=== PATIENT | female | born 1950 | race Caucasian/White ===

== ENCOUNTER 2023-02-11 17:38 | Inpatient (IN) | payer MEDICARE ==
[~2023-02-11] VITALS: Ht 165.1 cm; Wt 106.6 kg
[2023-02-11 18:09] LABS: BASOPHILS # (AUTO) 0.1 (0.0-0.1); BASOPHILS % 0.6 % (0.0-1.0); EOSINOPHILS % 0.3 % (0.0-6.0); HEMOGLOBIN 15.6 g/dL (12.0-16.0); LYMPHOCYTES # (AUTO) 0.9 (1.0-3.2); MEAN CORPUSCULAR HEMOGLOBIN 30.6 pg (28-32); MEAN CORPUSCULAR HGB CONC 33.9 g/dL (31-35); MEAN CORPUSCULAR VOLUME 90.2 fL (81-99); MONOCYTES # (AUTO) 1.1 (0.2-0.8); NEUTROPHILS # (AUTO) 8.1 (2.1-6.9); NEUTROPHILS % 78.9 % (38.7-80.0); PLATELET COUNT 343 x10e3/uL (140-360); RED CELL DISTRIBUTION WIDTH 13.6 % (11.7-14.4); WHITE BLOOD COUNT 10.22 x10e3/uL (4.8-10.8)
[2023-02-11] MEDS ORDERED: ONDANSETRON HCL INJ 2MG/ML 2ML 2 MG/ML VIAL IV STA (18:09)
[2023-02-11] MEDS ORDERED: SODIUM CHLORIDE 0.9% 1000ML 1,000 ML IV ONE (18:15)
[2023-02-11 18:19] LABS: ALBUMIN 4.2 g/dL (3.5-5.0); ALBUMIN/GLOBULIN RATIO 1.2 (0.8-2.0); ANION GAP 23.9 mmol/L (8-16); CALCIUM 10.4 mg/dL (8.4-10.2); CREATININE, SERUM 1.05 mg/dL (0.57-1.11); POTASSIUM 3.9 mmol/L (3.5-5.1)
[2023-02-11] MEDS ORDERED: IOPAMIDOL 370 MG/ML 100 ML INFUS..BTL INJ ONE (18:32)
[2023-02-11 18:42] LABS: CLARITY,URINE CLOUDY (CLEAR); COLOR,URINE YELLOW (YELLOW); KETONES,URINE 2+ (NEGATIVE); LEUKOCYTE ESTERASE ,URINE TRACE (NEGATIVE); NITRITE,URINE NEGATIVE (NEGATIVE); PROTEIN,URINE DIPSTICK TRACE (NEGATIVE); URINE UROBILINOGEN 0.2 mg/dL (0.2 - 1)
[2023-02-11 19:05] LABS: BACTERIA,URINE MANY /HPF; EPITHELIAL CELLS,URINE FEW /LPF; MUCUS,URINE FEW (RARE); RENAL EPITHELIAL CELLS,URINE MANY; TRANSITIONAL EPI CELLS,URINE MODERATE; WBC,URINE (MAN) >50 /HPF (0-5)
[2023-02-11] MEDS ORDERED: DEXTROSE 50% SYRINGE 50 ML IV PRN (19:45)
[2023-02-11] MEDS ORDERED: BENZOCAINE/TETRACAINE/BUTAMBEN AERO SPRAY 56 GM CAN TOP ONE (19:45)
[2023-02-11 20:00] VITALS: BP 102/64; PULSE 87; RESP 18; TEMP 98.7; O2SAT 97
[2023-02-11] MEDS: SODIUM CHLORIDE 0.9% 1000ML 1,000 ML IV SCH (20:58)
[2023-02-11] MEDS: INSULIN REGULAR, HUMAN 100 UNIT/1 ML SQ SCH (21:00)
[2023-02-11 21:15] VITALS: BP 102/64; PULSE 87; RESP 18; TEMP 98.7; O2SAT 97
[2023-02-11] MEDS ORDERED: METOPROLOL TART50 MG PO (21:16)
[2023-02-11] MEDS ORDERED: AMLODIPINE BESYL5 MG PO (22:26)
[2023-02-11] MEDS ORDERED: GABAPENTIN100 MG PO (22:26)
[2023-02-11] MEDS ORDERED: ROSUVASTATIN CA20 MG PO (22:26)
[2023-02-11] MEDS ORDERED: CLOPIDOGREL75 MG PO (22:26)
[2023-02-11] MEDS ORDERED: GEMTESA75 MG PO (22:26)
[2023-02-11] MEDS ORDERED: HYDROCODON-ACE1 EAC9 PO (22:26)
[2023-02-11] MEDS ORDERED: GLIPIZIDE10 MG PO (22:26)
[2023-02-11] MEDS ORDERED: MECLIZINE HCL25 MG PO (22:26)
[2023-02-11] MEDS ORDERED: METFORMIN HCL1000 MG PO (22:26)
[2023-02-11] MEDS ORDERED: LOSARTAN POTASS25 MG PO (22:26)
[2023-02-11] MEDS ORDERED: ELIQUIS5 MG PO (22:26)
[2023-02-11] MEDS ORDERED: OMEPRAZOLE40 MG PO (22:26)
[2023-02-11] MEDS ORDERED: METHOCARBAMOL500 MG PO (22:26)
[2023-02-11] MEDS ORDERED: JARDIANCE25 MG PO (22:26)
[2023-02-11] MEDS ORDERED: LOPRESSOR25 MG PO (22:27)
[2023-02-11] MEDS: ONDANSETRON HCL INJ 2MG/ML 2ML 2 MG/ML VIAL IV PRN (23:46)
[2023-02-11] MEDS: Morphine 4mg INJECTION 4 MG/ML INJ IV PRN (23:46)
[2023-02-12] VITALS (8 sets, daily range): BP systolic 112–137; BP diastolic 62–69; PULSE 90–98; RESP 16–20; TEMP 97.9–99; O2SAT 97–100
[2023-02-12] MEDS: SODIUM CHLORIDE 0.9% 1000ML 1,000 ML IV SCH ×3 (04:12→20:07)
[2023-02-12] MEDS ORDERED: HYDRALAZINE HCL 20 MG/ML VIAL IV PRN (04:15)
[2023-02-12] MEDS: ONDANSETRON HCL INJ 2MG/ML 2ML 2 MG/ML VIAL IV PRN ×2 (05:35→21:33)
[2023-02-12] MEDS: Morphine 4mg INJECTION 4 MG/ML INJ IV PRN ×2 (05:36→22:27)
[2023-02-12 05:53] LABS: BASOPHILS % 0.5 % (0.0-1.0); HEMATOCRIT 44.9 % (34.2-44.1); HEMOGLOBIN 14.7 g/dL (12.0-16.0); LYMPHOCYTES # (AUTO) 0.5 (1.0-3.2); MEAN CORPUSCULAR HEMOGLOBIN 30.4 pg (28-32); MEAN CORPUSCULAR HGB CONC 32.7 g/dL (31-35); MEAN CORPUSCULAR VOLUME 92.8 fL (81-99); MONOCYTES # (AUTO) 0.7 (0.2-0.8); NEUTROPHILS # (AUTO) 2.5 (2.1-6.9); NEUTROPHILS % 67.2 % (38.7-80.0); PLATELET COUNT 258 x10e3/uL (140-360); RED BLOOD COUNT 4.84 x10e6/uL (3.6-5.1); RED CELL DISTRIBUTION WIDTH 14.2 % (11.7-14.4); WHITE BLOOD COUNT 3.72 x10e3/uL (4.8-10.8)
[2023-02-12 06:10] LABS: ALBUMIN/GLOBULIN RATIO 1.2 (0.8-2.0); ANION GAP 23.8 mmol/L (8-16); CALCIUM 9.5 mg/dL (8.4-10.2); CREATININE, SERUM 1.12 mg/dL (0.57-1.11); POTASSIUM 3.8 mmol/L (3.5-5.1)
[2023-02-12] MEDS: INSULIN REGULAR, HUMAN 100 UNIT/1 ML SQ SCH ×4 (07:30→20:13)
[2023-02-12 10:34] LABS: BAND NEUTROPHILS % (MANUAL) 6 %; LYMPHOCYTES % (MANUAL) 22 % (19-48); MONOCYTES % (MANUAL) 8 % (3.4-9.0); NEUTROPHILS % (MANUAL) 64 % (40-74); PLATELET ESTIMATE ADEQUATE; PLATELET MORPHOLOGY COMMENT NORMAL
[2023-02-13] VITALS (7 sets, daily range): BP systolic 125–147; BP diastolic 68–92; PULSE 68–88; RESP 16–20; TEMP 97.6–98.7; O2SAT 94–99
[2023-02-13] MEDS: SODIUM CHLORIDE 0.9% 1000ML 1,000 ML IV SCH ×3 (04:34→19:32)
[2023-02-13] MEDS: Morphine 4mg INJECTION 4 MG/ML INJ IV PRN ×2 (04:45→23:43)
[2023-02-13] MEDS: ONDANSETRON HCL INJ 2MG/ML 2ML 2 MG/ML VIAL IV PRN (04:46)
[2023-02-13 05:24] LABS: BASOPHILS # (AUTO) 0.1 (0.0-0.1); BASOPHILS % 0.7 % (0.0-1.0); EOSINOPHILS % 0.2 % (0.0-6.0); HEMOGLOBIN 13.9 g/dL (12.0-16.0); LYMPHOCYTES # (AUTO) 0.9 (1.0-3.2); MEAN CORPUSCULAR HEMOGLOBIN 30.5 pg (28-32); MEAN CORPUSCULAR HGB CONC 33.1 g/dL (31-35); MEAN CORPUSCULAR VOLUME 92.3 fL (81-99); MONOCYTES # (AUTO) 1.3 (0.2-0.8); MONOCYTES % 13.1 % (4.4-11.3); NEUTROPHILS # (AUTO) 7.3 (2.1-6.9); NEUTROPHILS % 76.2 % (38.7-80.0); PLATELET COUNT 236 x10e3/uL (140-360); RED BLOOD COUNT 4.55 x10e6/uL (3.6-5.1); RED CELL DISTRIBUTION WIDTH 14.3 % (11.7-14.4); WHITE BLOOD COUNT 9.62 x10e3/uL (4.8-10.8)
[2023-02-13] MEDS: LORAZEPAM INJ 2 MG/ML VIAL IV PRN ×2 (05:28→23:43)
[2023-02-13 05:49] LABS: ALBUMIN 3.5 g/dL (3.5-5.0); ANION GAP 24.5 mmol/L (8-16); CREATININE, SERUM 1.01 mg/dL (0.57-1.11); MAGNESIUM 1.9 MG/DL (1.3-2.1); POTASSIUM 3.5 mmol/L (3.5-5.1)
[2023-02-13] MEDS: INSULIN REGULAR, HUMAN 100 UNIT/1 ML SQ SCH ×4 (08:07→20:17)
[2023-02-13 11:53] LABS: EOSINOPHILS % (MANUAL) 1 % (0-7); LYMPHOCYTES % (MANUAL) 7 % (19-48); METAMYELOCYTES % (MANUAL) 3 % (0-0); MONOCYTES % (MANUAL) 2 % (3.4-9.0); NEUTROPHILS % (MANUAL) 85 % (40-74)
[2023-02-13 11:54] LABS: PLATELET ESTIMATE ADEQUATE; PLATELET MORPHOLOGY COMMENT NORMAL; RBC MORPHOLOGY COMMENT NORMAL
[2023-02-13] MEDS ORDERED: FENTANYL CITRATE/PF 100MCG/2 ML INJ ONE ×2 (12:36→15:17)
[2023-02-13] MEDS ORDERED: SUCCINYLCHOLINE CHLORIDE 20 MG/ML 10ML VIAL ONE ×2 (12:45→13:32)
[2023-02-13] MEDS ORDERED: ONDANSETRON HCL INJ 2MG/ML 2ML 2 MG/ML VIAL ONE (12:45)
[2023-02-13] MEDS ORDERED: GLYCOPYRROLATE INJ 0.2 MG/ML VIAL ONE (12:45)
[2023-02-13] MEDS ORDERED: ROCURONIUM BROMIDE 10 MG/ML 5ML VIAL IV ONE (12:45)
[2023-02-13] MEDS ORDERED: PROPOFOL IV EMULSION 10 MG/ML 20 ML VIAL ONE (12:45)
[2023-02-13] MEDS ORDERED: NEOSTIGMINE 1 MG/ML 10ML VIAL ONE (12:45)
[2023-02-13] MEDS ORDERED: SEVOFLURANE INHAL SOLN 250 ML PEN BTL ONE (12:45)
[2023-02-13] MEDS ORDERED: LIDOCAINE HCL 2% LOCAL INJ 5 ML SDV VIAL INJ ONE (12:45)
[2023-02-13] MEDS ORDERED: ONDANSETRON HCL INJ 2MG/ML 2ML 2 MG/ML VIAL IV PRN (15:00)
[2023-02-13] MEDS: SODIUM CHLORIDE 0.9% 250ML IRRIG IR SCH ×3 (15:00→23:35)
[2023-02-14] VITALS (7 sets, daily range): BP systolic 123–132; BP diastolic 68–83; PULSE 90–93; RESP 17–22; TEMP 98.1–99; O2SAT 95–98
[2023-02-14] MEDS: SODIUM CHLORIDE 0.9% 250ML IRRIG IR SCH ×2 (04:25→08:19)
[2023-02-14] MEDS: SODIUM CHLORIDE 0.9% 1000ML 1,000 ML IV SCH ×5 (04:31→19:45)
[2023-02-14 05:18] LABS: BASOPHILS # (AUTO) 0.1 (0.0-0.1); BASOPHILS % 0.6 % (0.0-1.0); EOSINOPHILS % 0.4 % (0.0-6.0); HEMOGLOBIN 12.9 g/dL (12.0-16.0); LYMPHOCYTES # (AUTO) 0.8 (1.0-3.2); MEAN CORPUSCULAR HEMOGLOBIN 30.2 pg (28-32); MEAN CORPUSCULAR HGB CONC 33.1 g/dL (31-35); MEAN CORPUSCULAR VOLUME 91.3 fL (81-99); MONOCYTES # (AUTO) 0.8 (0.2-0.8); MONOCYTES % 10.2 % (4.4-11.3); NEUTROPHILS # (AUTO) 6.2 (2.1-6.9); NEUTROPHILS % 76.7 % (38.7-80.0); PLATELET COUNT 237 x10e3/uL (140-360); RED BLOOD COUNT 4.27 x10e6/uL (3.6-5.1); WHITE BLOOD COUNT 8.04 x10e3/uL (4.8-10.8)
[2023-02-14 05:46] LABS: ANION GAP 21.1 mmol/L (8-16); CALCIUM 8.6 mg/dL (8.4-10.2); CREATININE, SERUM 0.78 mg/dL (0.57-1.11); POTASSIUM 3.1 mmol/L (3.5-5.1)
[2023-02-14] MEDS: INSULIN REGULAR, HUMAN 100 UNIT/1 ML SQ SCH ×4 (07:30→21:00)
[2023-02-14 07:56] LABS: LYMPHOCYTES % (MANUAL) 13 % (19-48); METAMYELOCYTES % (MANUAL) 1 % (0-0); MONOCYTES % (MANUAL) 6 % (3.4-9.0); NEUTROPHILS % (MANUAL) 80 % (40-74); PLATELET ESTIMATE ADEQUATE; PLATELET MORPHOLOGY COMMENT NORMAL; RBC MORPHOLOGY COMMENT NORMAL
[2023-02-14] MEDS ORDERED: CHLORASEPTIC SPRAY 177 ML BTL MM PRN (09:00)
[2023-02-14] MEDS ORDERED: BISACODYL 10 MG SUPP PR ONE (10:30)
[2023-02-14] MEDS: POTASSIUM CHLORIDE 20MEQ/100ML 100 ML IV SCH ×2 (12:27→15:31)
[2023-02-14] MEDS: LORAZEPAM INJ 2 MG/ML VIAL IV PRN (21:43)
[2023-02-15] MEDS: SODIUM CHLORIDE 0.9% 1000ML 1,000 ML IV SCH ×2 (03:48→11:15)
[2023-02-15 04:36] VITALS: BP 152/82; PULSE 97; RESP 18; TEMP 99; O2SAT 97
[2023-02-15 05:39] LABS: BASOPHILS % 0.1 % (0.0-1.0); EOSINOPHILS # (AUTO) 0.1 (0.0-0.4); EOSINOPHILS % 0.5 % (0.0-6.0); HEMATOCRIT 40.4 % (34.2-44.1); LYMPHOCYTES # (AUTO) 1.1 (1.0-3.2); LYMPHOCYTES % 10.1 % (18.0-39.1); MEAN CORPUSCULAR HEMOGLOBIN 30.4 pg (28-32); MEAN CORPUSCULAR HGB CONC 32.2 g/dL (31-35); MEAN CORPUSCULAR VOLUME 94.6 fL (81-99); MONOCYTES # (AUTO) 0.8 (0.2-0.8); MONOCYTES % 7.6 % (4.4-11.3); NEUTROPHILS % 75.6 % (38.7-80.0); PLATELET COUNT 217 x10e3/uL (140-360); RED BLOOD COUNT 4.27 x10e6/uL (3.6-5.1); RED CELL DISTRIBUTION WIDTH 13.9 % (11.7-14.4); WHITE BLOOD COUNT 10.59 x10e3/uL (4.8-10.8)
[2023-02-15 06:06] LABS: CALCIUM 8.6 mg/dL (8.4-10.2); CREATININE, SERUM 0.74 mg/dL (0.57-1.11)
[2023-02-15] MEDS: INSULIN REGULAR, HUMAN 100 UNIT/1 ML SQ SCH ×3 (07:30→16:30)
[2023-02-15 08:01] VITALS: BP 152/82; PULSE 97; RESP 18; TEMP 99; O2SAT 97
[2023-02-15 08:04] VITALS: BP 152/82; PULSE 97; RESP 18; TEMP 99; O2SAT 97
[2023-02-15 09:07] VITALS: BP 141/84; PULSE 100; RESP 19; TEMP 98.4; O2SAT 97
[2023-02-15] MEDS ORDERED: METHOCARBAMOL 500 MG TAB PO PRN (09:15)
[2023-02-15] MEDS ORDERED: HYDROCODONE/APAP 10MG-325MG TAB PO PRN (09:15)
[2023-02-15 10:15] LABS: LYMPHOCYTES % (MANUAL) 7 % (19-48); METAMYELOCYTES % (MANUAL) 1 % (0-0); MONOCYTES % (MANUAL) 4 % (3.4-9.0); NEUTROPHILS % (MANUAL) 88 % (40-74); PLATELET ESTIMATE ADEQUATE; PLATELET MORPHOLOGY COMMENT NORMAL; RBC MORPHOLOGY COMMENT NORMAL
[2023-02-15] MEDS: GLIPIZIDE 5 MG TAB PO SCH ×2 (10:41→12:36)
[2023-02-15] MEDS ORDERED: APIXABAN 5 MG TABLET PO SCH ×2 (11:45→17:00)
[2023-02-15] MEDS ORDERED: LOSARTAN POTASSIUM 25 MG TAB PO SCH (11:45)
[2023-02-15 12:08] VITALS: BP 151/85; PULSE 96; RESP 19; TEMP 98.8; O2SAT 98
[2023-02-15] MEDS: GABAPENTIN 100 MG CAP PO SCH ×2 (12:37→17:00)
[2023-02-15] MEDS: METOPROLOL TARTRATE 50 MG TAB PO SCH ×2 (12:37→17:00)
[2023-02-15] MEDS: METFORMIN HCL 500 MG TAB PO SCH ×2 (12:38→17:00)
[2023-02-15] MEDS ORDERED: MECLIZINE HCL 12.5 MG TAB PO SCH (15:00)
[2023-02-15 15:44] VITALS: BP 133/78; PULSE 83; RESP 19; TEMP 97.7; O2SAT 97
[2023-02-15] MEDS ORDERED: METFORMIN HCL 500 MG TAB PO SCH (17:00)
[2023-02-15] MEDS ORDERED: METOPROLOL TARTRATE 50 MG TAB PO SCH (17:00)
[2023-02-15] MEDS ORDERED: GABAPENTIN 100 MG CAP PO SCH (17:00)
[2023-02-15] MEDS ORDERED: METOPROLOL TARTRATE 25 MG TAB PO SCH (17:00)
[2023-02-15] MEDS ORDERED: CRESTOR 10MG PO SCH (21:00)
[2023-02-16] MEDS ORDERED: AZITHROMYCIN 250 MG TAB PO SCH (06:00)
[2023-02-16] MEDS ORDERED: PANTOPRAZOLE SOD 40 MG TABEC PO SCH ×2 (07:30→09:00)
[2023-02-16] MEDS ORDERED: LOSARTAN POTASSIUM 25 MG TAB PO SCH (09:00)
[2023-02-16] MEDS ORDERED: NON-FORMULARY MEDICATION (Vibegron (Gemtesa) 75 MG) PO SCH (09:00)
[2023-02-16] MEDS ORDERED: NON-FORMULARY MEDICATION (Empagliflozin (Jardiance) 25 MG) PO SCH (09:00)
[2023-02-16] MEDS ORDERED: AMLODIPINE BESYLATE 5 MG TAB PO SCH (09:00)
[2023-02-16] MEDS ORDERED: CLOPIDOGREL BISULFATE 75 MG TAB PO SCH (09:00)
== END 2023-02-15 18:50 | disposition home or self-care (01) | DRG 335 ==
LOC: ER 18:00 → ERHOLD 19:41 → MED/SURG 21:10
PROVIDERS: ADMIT Internal Medicine; ATTEND Internal Medicine
PROC: 0DNU0ZZ Release Omentum, Open Approach (ICD-10-PCS; 2023-02-13)
PROC: 0WQF0ZZ Repair Abdominal Wall, Open Approach (ICD-10-PCS; principal; 2023-02-13 13:34)
DX: K42.0 Umbilical hernia with obstruction, without gangrene (principal); J18.9 Pneumonia, unspecified organism; K56.601 Complete intestinal obstruction, unspecified as to cause; N13.2 Hydronephrosis with renal and ureteral calculous obstruction; N39.0 Urinary tract infection, site not specified; I48.91 Unspecified atrial fibrillation; F41.9 Anxiety disorder, unspecified; K21.9 Gastro-esophageal reflux disease without esophagitis; M54.9 Dorsalgia, unspecified; G89.29 Other chronic pain; R16.1 Splenomegaly, not elsewhere classified; E11.22 Type 2 diabetes mellitus with diabetic chronic kidney disease; E87.6 Hypokalemia; I12.9 Hypertensive chronic kidney disease with stage 1 through stage 4 chronic kidney disease, or unspecified chronic kidney disease; N18.30 Chronic kidney disease, stage 3 unspecified; Z90.49 Acquired absence of other specified parts of digestive tract; Z11.52 Encounter for screening for COVID-19; E66.01 Morbid (severe) obesity due to excess calories; Z68.39 Body mass index [BMI] 39.0-39.9, adult
CPT/HCPCS: 36415; 74018; 74177; 80048; 80053; 81001; 82948; 83690; 83735; 85025; 87040; 88302; 93005; 96361; 99285; J0330; J2001; J2060; J2270; J2405; J2543; J2710; J3480; J7030; J7050; Q9967; U0002